=== PATIENT | male | born 1975 | race American Indian/Alaskan Native ===

== ENCOUNTER 2016-11-03 04:21 | Emergency (ER) | payer SELFPAY ==
[2016-11-03 04:37] VITALS: BP 126/77
[2016-11-03] MEDS ORDERED: HYDROGEN PEROXIDE TP ONE (05:10)
[2016-11-03] MEDS ORDERED: XYLOCAINE 1% MPF 5 mL INFILTRATI ONE (05:10)
[2016-11-03] MEDS ORDERED: HYDROGEN PEROXIDE ONE (05:13)
[2016-11-03] MEDS ORDERED: XYLOCAINE 1% MPF 5 mL ONE (05:15)
--- NOTE | 2016-11-03 05:57 | Emergency Department Report ---
ED ENT HPI - General Chief complaint: Earache Stated complaint: EAR PAIN Time Seen by Provider: 11/03/16 05:32 Source: patient Mode of arrival: Ambulatory Limitations: No Limitations - History of Present Illness Initial comments: 41-year-old male presents with complaint of foreign body sensation in the ear since yesterday. Patient complaining of sensation and left ear of pressure and possibly concerned of an insect in his ear. Patient denies any hearing loss no discharge from the ear. Eyes any fever or chills no headache no dental pain. MD complaint: ear pain Onset/Timin -: days(s) Location: L ear Severity: mild Severity scale (0 -10): 3 Quality: aching, dull Consistency: intermittent Improves with: none - Related Data Previous Rx's Medication Instructions Recorded Last Taken Type HYDROcodone/APAP 5-325 [[place] 1 each PO Q6HR PRN #12 tablet 08/09/15 Unknown Rx 5/325] Sulfamethoxazole/Trimethoprim 1 each PO BID #14 tablet 08/09/15 Unknown Rx [Bactrim DS TAB] Brompheniramine/Pseudoephed/Dm 10 ml PO Q4H PRN #120 syrup 10/12/15 Unknown Rx [Bromfed Dm Cough Syrup] Ondansetron [Zofran Odt] 4 mg PO Q8H PRN #10 tab.rapdis 10/12/15 Unknown Rx Amoxicillin [Trimox CAP] 500 mg PO Q8H #21 capsule 11/03/16 Unknown Rx Carbamide Peroxide 6.5% [Ear Wax 300 drops OT QDAY #1 bottle 11/03/16 Unknown Rx Drops] Ibuprofen [Motrin] 600 mg PO Q8H PRN #20 tablet 11/03/16 Unknown Rx Neomy/Polymyx B/Hc (Otic) Soln 4 drops OTIC TID #1 bottle 11/03/16 Unknown Rx [Cortisporin (Otic) Soln] Allergies Allergy/AdvReac Type Severity Reaction Status Date / Time No Known Allergies Allergy Unverified 08/11/14 14:23 ED Dental HPI - General Chief complaint: Earache Stated complaint: EAR PAIN Time Seen by Provider: 11/03/16 05:32 Source: patient Mode of arrival: Ambulatory Limitations: No Limitations - Related Data Previous Rx's Medication Instructions Recorded Last Taken Type HYDROcodone/APAP 5-325 [[place] 1 each PO Q6HR PRN #12 tablet 08/09/15 Unknown Rx 5/325] Sulfamethoxazole/Trimethoprim 1 each PO BID #14 tablet 08/09/15 Unknown Rx [Bactrim DS TAB] Brompheniramine/Pseudoephed/Dm 10 ml PO Q4H PRN #120 syrup 10/12/15 Unknown Rx [Bromfed Dm Cough Syrup] Ondansetron [Zofran Odt] 4 mg PO Q8H PRN #10 tab.rapdis 10/12/15 Unknown Rx Amoxicillin [Trimox CAP] 500 mg PO Q8H #21 capsule 11/03/16 Unknown Rx Carbamide Peroxide 6.5% [Ear Wax 300 drops OT QDAY #1 bottle 11/03/16 Unknown Rx Drops] Ibuprofen [Motrin] 600 mg PO Q8H PRN #20 tablet 11/03/16 Unknown Rx Neomy/Polymyx B/Hc (Otic) Soln 4 drops OTIC TID #1 bottle 11/03/16 Unknown Rx [Cortisporin (Otic) Soln] Allergies Allergy/AdvReac Type Severity Reaction Status Date / Time No Known Allergies Allergy Unverified 08/11/14 14:23 ED Review of Systems ROS: Stated complaint: EAR PAIN Other details as noted in HPI Constitutional: denies: chills, fever Eyes: denies: eye pain, eye discharge, vision change ENT: ear pain. denies: throat pain Respiratory: denies: cough, shortness of breath, wheezing Cardiovascular: denies: chest pain, palpitations Endocrine: no symptoms reported Gastrointestinal: denies: abdominal pain, nausea, diarrhea Genitourinary: denies: urgency, dysuria Musculoskeletal: denies: back pain, joint swelling, arthralgia Skin: denies: rash, lesions Neurological: denies: headache, weakness, paresthesias Psychiatric: denies: anxiety, depression Hematological/Lymphatic: denies: easy bleeding, easy bruising ED Past Medical Hx - Past Medical History Previous Medical History?: No - Surgical History Past Surgical History?: No - Social History Smoking Status: Never Smoker Substance Use Type: None - Medications Home Medications: Home Medications Medication Instructions Recorded Confirmed Last Taken Type HYDROcodone/APAP 5-325 [[place] 1 each PO Q6HR PRN #12 tablet 08/09/15 Unknown Rx 5/325] Sulfamethoxazole/Trimethoprim 1 each PO BID #14 tablet 08/09/15 Unknown Rx [Bactrim DS TAB] Brompheniramine/Pseudoephed/Dm 10 ml PO Q4H PRN #120 syrup 10/12/15 Unknown Rx [Bromfed Dm Cough Syrup] Ondansetron [Zofran Odt] 4 mg PO Q8H PRN #10 tab.rapdis 10/12/15 Unknown Rx Amoxicillin [Trimox CAP] 500 mg PO Q8H #21 capsule 11/03/16 Unknown Rx Carbamide Peroxide 6.5% [Ear Wax 300 drops OT QDAY #1 bottle 11/03/16 Unknown Rx Drops] Ibuprofen [Motrin] 600 mg PO Q8H PRN #20 tablet 11/03/16 Unknown Rx Neomy/Polymyx B/Hc (Otic) Soln 4 drops OTIC TID #1 bottle 11/03/16 Unknown Rx [Cortisporin (Otic) Soln] ED Physical Exam - General Limitations: No Limitations General appearance: alert, in no apparent distress - Head Head exam: Present: atraumatic, normocephalic - Eye Eye exam: Present: normal appearance, PERRL, EOMI - ENT ENT exam: Present: mucous membranes moist - Expanded ENT Exam Expanded TM/Canal exam: Cerumen Impaction: Left TM (cerumen impaction left ear, no foreign body no insect visualized) - Neck Neck exam: Present: normal inspection - Respiratory Respiratory exam: Present: normal lung sounds bilaterally. Absent: respiratory distress - Cardiovascular Cardiovascular Exam: Present: regular rate, normal rhythm. Absent: systolic murmur, diastolic murmur, rubs, gallop - GI/Abdominal GI/Abdominal exam: Present: soft, normal bowel sounds - Rectal Rectal exam: Present: deferred - Extremities Exam Extremities exam: Present: normal inspection - Back Exam Back exam: Present: normal inspection - Neurological Exam Neurological exam: Present: alert, oriented X3 - Psychiatric Psychiatric exam: Present: normal affect, normal mood - Skin Skin exam: Present: warm, dry, intact, normal color. Absent: rash ED Course Vital Signs 11/03/16 04:25 Temperature 98.2 F Pulse Rate 73 Blood Pressure 126/77 O2 Sat by Pulse 98 Oximetry ED Medical Decision Making - Medical Decision Making A/P: Left side cerumen impaction ear, otitis externa 1-I was able to flush patient's ear and removed cerumen, tympanic membrane visualized, slightly injected, mostly injected in external auditory canal. no mastoid tenderness or erythma on exam 2-Motrin when necessary for pain 3-Corticosporin drops, Debrox eardrops 4- follow-up with primary care doctor Critical care attestation.: If time is entered above; I have spent that time in minutes in the direct care of this critically ill patient, excluding procedure time. ED Disposition Clinical Impression: Impacted cerumen of left ear Disposition: DISCHARGED TO HOME OR SELFCARE Is pt being admited?: No Does the pt Need Aspirin: No Condition: Stable Instructions: Cerumen Impaction (ED), Otitis Externa (ED) Prescriptions: Amoxicillin [Trimox CAP] 500 mg PO Q8H #21 capsule Carbamide Peroxide 6.5% [Ear Wax Drops] 300 drops OT QDAY #1 bottle Ibuprofen [Motrin] 600 mg PO Q8H PRN #20 tablet PRN Reason: Pain Neomy/Polymyx B/Hc (Otic) Soln [Cortisporin (Otic) Soln] 4 drops OTIC TID #1 bottle Referrals: [facility] [Outside] - 3-5 Days Forms: Work/School Release Form(ED) Time of Disposition: 05:57
== END 2016-11-03 06:41 | disposition home or self-care (01) ==
LOC: ED 04:21
DX: H61.22 Impacted cerumen, left ear (principal); Y92.9 Unspecified place or not applicable
CPT/HCPCS: 99282

== ENCOUNTER 2016-12-17 04:22 | Emergency (ER) | payer SELFPAY ==
[2016-12-17] MEDS ORDERED: NORCO 5/325 ONE (04:25)
[2016-12-17] MEDS ORDERED: NORCO 5/325 PO ONE (04:32)
[2016-12-17 04:45] VITALS: BP 119/72
[2016-12-17 04:49] LABS: Basophils % (Auto) 0.8 % (0.0-1.8); Eosinophils % (Auto) 0.1 % (0.0-4.3); Hematocrit 45.1 % (35.5-45.6); Hemoglobin 15.3 gm/dl (11.8-15.2); Mean Corpuscular HGB Conc 34 % (32-34); Mean Corpuscular Hemoglobin 29 pg (28-32); Mean Corpuscular Volume 86 fl (84-94); Platelet Count 231 K/mm3 (140-440); Red Blood Count 5.22 M/mm3 (3.65-5.03); Red Cell Distribution Width 14.4 % (13.2-15.2); White Blood Count 8.6 K/mm3 (4.5-11.0)
[2016-12-17 05:11] LABS: Alanine Aminotransferase 11 units/L (7-56); Albumin 4.2 g/dL (3.9-5); Albumin/Globulin Ratio 1.4 %; Alkaline Phosphatase 89 units/L (35-129); Anion Gap 18 mmol/L; Bilirubin,Total 0.2 mg/dL (0.1-1.2); Blood Urea Nitrogen 12 mg/dL (9-20); Calcium 9.4 mg/dL (8.4-10.2); Carbon Dioxide 26 mmol/L (22-30); Chloride 97.5 mmol/L (98-107); Glucose 126 mg/dL (75-100); Lipase 17 units/L (13-60); Sodium 137 mmol/L (137-145); Total Protein 7.2 g/dL (6.3-8.2)
--- NOTE | 2016-12-17 05:18 | Cat Scan Report ---
FINAL REPORT EXAM: CT ABDOMEN PELVIS WO CON HISTORY: RT Flank Pn, Blood in urine TECHNIQUE: Unenhanced stone protocol CT of the abdomen and pelvis at 2.5 millimeter axial increments. Coronal and sagittal reconstruction was also performed. PRIORS: None. FINDINGS: There is 4.3 mm obstructing calculus in the proximal right ureter, just beyond the ureteropelvic junction. This is located at approximately L3 vertebral level. This is associated with mild right hydronephrosis. There are other 4-5 mm nonobstructing calculi present bilaterally in the lower poles. No evidence for bladder mass is seen. Otherwise, within the limits of a noncontrast exam, the liver, spleen, pancreas, gallbladder, and adrenal glands are unremarkable. No evidence for retroperitoneal or pelvic lymphadenopathy is seen. The bowel loops have normal caliber. No fluid collection, inflammatory change, or free air is seen within the abdomen or pelvis. The cecum dips deep into the right pelvis. The appendix is normal located along the right pelvic sidewall. Within the pelvis, the prostate is normal. Images through the upper abdomen include the lung bases which are expanded and clear. Bony structures show no focal abnormalities. IMPRESSION: 1. Obstructing calculus in the proximal right ureter causing mild hydronephrosis 2. Multiple bilateral nonobstructing renal calculi in the lower poles
[2016-12-17 07:09] LABS: Bacteria,Urine 2+ /HPF (Negative); Bilirubin,Urine NEG (Negative); Blood,Urine LG (Negative); Ketones,Urine TR mg/dL (Negative); Leukocyte Esterase,Urine NEG (Negative); Mucus,Urine 3+ /HPF; Nitrite,Urine NEG (Negative)
[2016-12-17 07:10] LABS: RBC,Urine > 182.0 /HPF (0.0-6.0)
== END 2016-12-17 04:45 | disposition left against medical advice (07) ==
LOC: ED 04:22
DX: R31.9 Hematuria, unspecified (principal); R10.9 Unspecified abdominal pain; Z53.21 Procedure and treatment not carried out due to patient leaving prior to being seen by health care provider
CPT/HCPCS: 36415; 74176; 80053; 81001; 83690; 85025

== ENCOUNTER 2016-12-19 01:30 | Emergency (ER) | payer SELFPAY ==
[2016-12-19] MEDS ORDERED: TYLENOL ONE (01:50)
[2016-12-19] MEDS ORDERED: TYLENOL PO ONE (01:51)
[2016-12-19 02:41] LABS: Bilirubin,Urine NEG (Negative); Blood,Urine LG (Negative); Ketones,Urine NEG (Negative); Leukocyte Esterase,Urine TR (Negative); Mucus,Urine 3+ /HPF; Nitrite,Urine NEG (Negative); Urobilinogen,Urine < 2.0 mg/dL (<2.0)
[2016-12-19 02:45] LABS: RBC,Urine > 182.0 /HPF (0.0-6.0)
[2016-12-19] MEDS ORDERED: TORADOL IM ONE (06:48)
--- NOTE | 2016-12-19 06:49 | Emergency Department Report ---
ED Abdominal Pain HPI - General Chief Complaint: Urogenital-Male Stated Complaint: BACK PAIN,BLOOD IN URINE Time Seen by Provider: 12/19/16 06:39 Source: patient Mode of arrival: Ambulatory Limitations: No Limitations - History of Present Illness Initial Comments: This is a 41-year-old male. He is previously unknown to me. He does not have a primary care doctor. He has a past medical history of kidney stones. He reports having required lithotripsy in the past. Patient recently presented for flank pain and hematuria. He had a noncontrast CT scan of the abdomen and pelvis demonstrated obstructing calculus in the right proximal ureter causing mild hydronephrosis. His laboratory studies were unremarkable with the exception of hematuria. At the present moment, the patient has no chest pain, abdominal pain, shortness of breath, irritative or obstructive urinary symptoms or testicular pain. He has no complaints at this time. The patient was instructed that he has an obstructing kidney stone and that his laboratory studies were unremarkable. He will be discharged with pain medication, nausea medication, tamsulosin. The case was discussed with urology on-call, Dr. Whitlock, who agreed with this plan of care, and indicated the patient can follow-up with him later on today, at 8:15 in the morning. The patient was informed of these findings and the plan of care. He verbalizes understanding. MD Complaint: abdominal pain, flank pain Severity scale (0 -10): 10 Consistency: now resolved Improves With: nothing Worsens With: nothing Associated Symptoms: denies other symptoms - Related Data Previous Rx's Medication Instructions Recorded Last Taken Type HYDROcodone/APAP 5-325 [[place] 1 each PO Q6HR PRN #12 tablet 08/09/15 Unknown Rx 5/325] Sulfamethoxazole/Trimethoprim 1 each PO BID #14 tablet 08/09/15 Unknown Rx [Bactrim DS TAB] Brompheniramine/Pseudoephed/Dm 10 ml PO Q4H PRN #120 syrup 10/12/15 Unknown Rx [Bromfed Dm Cough Syrup] Ondansetron [Zofran Odt] 4 mg PO Q8H PRN #10 tab.rapdis 10/12/15 Unknown Rx Amoxicillin [Trimox CAP] 500 mg PO Q8H #21 capsule 11/03/16 Unknown Rx Carbamide Peroxide 6.5% [Ear Wax 300 drops OT QDAY #1 bottle 11/03/16 Unknown Rx Drops] Ibuprofen [Motrin] 600 mg PO Q8H PRN #20 tablet 11/03/16 Unknown Rx Neomy/Polymyx B/Hc (Otic) Soln 4 drops OTIC TID #1 bottle 11/03/16 Unknown Rx [Cortisporin (Otic) Soln] Ketorolac [Toradol] 10 mg PO Q6H PRN #20 tablet 12/19/16 Unknown Rx Ondansetron [Zofran Odt] 4 mg PO QID PRN #20 tab.rapdis 12/19/16 Unknown Rx Tamsulosin [Flomax] 0.4 mg PO QDAY #30 cap 12/19/16 Unknown Rx oxyCODONE [Roxicodone] 5 mg PO Q6HR PRN #15 tablet 12/19/16 Unknown Rx Allergies Allergy/AdvReac Type Severity Reaction Status Date / Time No Known Allergies Allergy Unverified 08/11/14 14:23 ED Review of Systems ROS: Stated complaint: BACK PAIN,BLOOD IN URINE Other details as noted in HPI ED Past Medical Hx - Past Medical History Previous Medical History?: Yes Additional medical history: Kidney Stone - Surgical History Past Surgical History?: Yes Additional Surgical History: Kidney Stone - Social History Smoking Status: Current Every Day Smoker Substance Use Type: Marijuana - Medications Home Medications: Home Medications Medication Instructions Recorded Confirmed Last Taken Type HYDROcodone/APAP 5-325 [[place] 1 each PO Q6HR PRN #12 tablet 08/09/15 Unknown Rx 5/325] Sulfamethoxazole/Trimethoprim 1 each PO BID #14 tablet 08/09/15 Unknown Rx [Bactrim DS TAB] Brompheniramine/Pseudoephed/Dm 10 ml PO Q4H PRN #120 syrup 10/12/15 Unknown Rx [Bromfed Dm Cough Syrup] Ondansetron [Zofran Odt] 4 mg PO Q8H PRN #10 tab.rapdis 10/12/15 Unknown Rx Amoxicillin [Trimox CAP] 500 mg PO Q8H #21 capsule 11/03/16 Unknown Rx Carbamide Peroxide 6.5% [Ear Wax 300 drops OT QDAY #1 bottle 11/03/16 Unknown Rx Drops] Ibuprofen [Motrin] 600 mg PO Q8H PRN #20 tablet 11/03/16 Unknown Rx Neomy/Polymyx B/Hc (Otic) Soln 4 drops OTIC TID #1 bottle 11/03/16 Unknown Rx [Cortisporin (Otic) Soln] Ketorolac [Toradol] 10 mg PO Q6H PRN #20 tablet 12/19/16 Unknown Rx Ondansetron [Zofran Odt] 4 mg PO QID PRN #20 tab.rapdis 12/19/16 Unknown Rx Tamsulosin [Flomax] 0.4 mg PO QDAY #30 cap 12/19/16 Unknown Rx oxyCODONE [Roxicodone] 5 mg PO Q6HR PRN #15 tablet 12/19/16 Unknown Rx ED Physical Exam - General Limitations: No Limitations General appearance: alert, in no apparent distress - Head Head exam: Present: atraumatic, normocephalic - Eye Eye exam: Present: normal appearance, EOMI. Absent: nystagmus - ENT ENT exam: Present: normal exam, normal orophraynx, mucous membranes moist, normal external ear exam - Neck Neck exam: Present: normal inspection, full ROM. Absent: tenderness, meningismus - Respiratory Respiratory exam: Present: normal lung sounds bilaterally. Absent: respiratory distress, wheezes, rales, rhonchi, stridor, chest wall tenderness, accessory muscle use, decreased breath sounds, prolonged expiratory - Cardiovascular Cardiovascular Exam: Present: regular rate, normal rhythm, normal heart sounds. Absent: bradycardia, tachycardia, irregular rhythm, systolic murmur, diastolic murmur, rubs, gallop - GI/Abdominal GI/Abdominal exam: Present: soft, normal bowel sounds. Absent: distended, tenderness, guarding, rebound, rigid, pulsatile mass - Rectal Rectal exam: Present: deferred - Extremities Exam Extremities exam: Present: normal inspection, full ROM, normal capillary refill. Absent: tenderness, pedal edema, joint swelling, calf tenderness - Back Exam Back exam: Present: normal inspection, full ROM. Absent: tenderness, CVA tenderness (R), CVA tenderness (L), muscle spasm, paraspinal tenderness, vertebral tenderness - Neurological Exam Neurological exam: Present: alert, oriented X3, normal gait, other (Extraocular movements intact. Tongue midline. No facial droop. Facial sensation intact to light touch in the V1, V2, V3 distribution bilaterally. 5 and 5 strength in 4 extremities.. Sensation is intact to light touch in 4 extremities.). Absent : motor sensory deficit - Psychiatric Psychiatric exam: Present: normal affect, normal mood - Skin Skin exam: Present: warm, dry, intact, normal color. Absent: rash ED Course Vital Signs 12/19/16 12/19/16 01:44 06:00 Temperature 97.7 F 97.8 F Pulse Rate 70 18 L Respiratory 18 16 Rate Blood Pressure 134/94 Blood Pressure 135/69 [Left] O2 Sat by Pulse 99 100 Oximetry ED Medical Decision Making - Lab Data Vital Signs 12/19/16 12/19/16 01:44 06:00 Temperature 97.7 F 97.8 F Pulse Rate 70 18 L Respiratory 18 16 Rate Blood Pressure 134/94 Blood Pressure 135/69 [Left] O2 Sat by Pulse 99 100 Oximetry Labs 12/19/16 01:30 Urine Color Red Urine Turbidity Slightly-cloudy Urine pH 6.0 Ur Specific [place] 1.014 Urine Protein 100 mg/dl Urine Glucose (UA) Neg Urine Ketones Neg Urine Blood Lg Urine Nitrite Neg Urine Bilirubin Neg Urine Urobilinogen < 2.0 Ur Leukocyte Esterase Tr Urine WBC (Auto) 0.0 Urine RBC (Auto) > 182.0 U Epithel Cells (Auto) 1.0 Urine Mucus 3+ - Radiology Data Radiology results: report reviewed, image reviewed CT scan of the abdomen and pelvis demonstrated obstructing calculus in the right ureter causing mild hydronephrosis - Differential Diagnosis known renal colic Critical care attestation.: If time is entered above; I have spent that time in minutes in the direct care of this critically ill patient, excluding procedure time. ED Disposition Clinical Impression: Renal colic on right side Disposition: DISCHARGED TO HOME OR SELFCARE Is pt being admited?: No Does the pt Need Aspirin: No Condition: Stable Instructions: Renal Colic (ED) Additional Instructions: Laboratory studies, CT scan consistent with kidney stone on the right-hand side. The kidney stone is blocking the tube that connects the kidney to the bladder. Take the pain medication, nausea medication as needed and directed. Use caution when taking the oxycodone as this medication is sedating. If taking the oxycodone, not drive, consume alcohol, care for children, or make important decisions. I recommend that you follow-up with Dr. Whitlock for any local urology specialist within the next 7-10 days. Not following up in a timely fashion may result in impairment of kidney function, loss of kidney function, ultimately which may require dialysis. Return to the ER right away with new pain, worsened pain, migration of pain, fevers or chills, intractable nausea or vomiting, inability to tolerate liquid feeds. Prescriptions: Ketorolac [Toradol] 10 mg PO Q6H PRN #20 tablet PRN Reason: Pain Ondansetron [Zofran Odt] 4 mg PO QID PRN #20 tab.rapdis PRN Reason: Nausea oxyCODONE [Roxicodone] 5 mg PO Q6HR PRN #15 tablet PRN Reason: Pain Tamsulosin [Flomax] 0.4 mg PO QDAY #30 cap Referrals: PRIMARY CARE, [Primary Care Provider] - 3-5 Days FAB WHITLOCK MD [Staff Physician] - 3-5 Days NIDIA GREENWOOD MD [Staff Physician] - 3-5 Days Forms: Work/School Release Form(ED)
[2016-12-19 06:57] VITALS: BP 135/69
== END 2016-12-19 07:02 | disposition home or self-care (01) ==
LOC: ED 01:30
DX: N23 Unspecified renal colic (principal); F17.200 Nicotine dependence, unspecified, uncomplicated; F12.90 Cannabis use, unspecified, uncomplicated
CPT/HCPCS: 81001; 99283

== ENCOUNTER 2017-08-12 07:33 | Emergency (ER) | payer OTHER ==
[2017-08-12 09:38] LABS: Bilirubin,Urine NEG (Negative); Blood,Urine LG (Negative); Ketones,Urine NEG (Negative); Leukocyte Esterase,Urine NEG (Negative); Mucus,Urine FEW /HPF; Nitrite,Urine NEG (Negative); Protein,Urine <15 mg/dL mg/dL (Negative); Urobilinogen,Urine < 2.0 mg/dL (<2.0)
[2017-08-12 09:47] LABS: RBC,Urine > 182.0 /HPF (0.0-6.0)
[2017-08-12] MEDS ORDERED: TORADOL IV ONE (12:24)
--- NOTE | 2017-08-12 13:29 | Cat Scan Report ---
CT ABDOMEN PELVIS WITHOUT CONTRAST: HISTORY: Right flank pain. COMPARISON: 12/17/16. TECHNIQUE: Helical CT in 1.25mm intervals without IV contrast. Sagittal and coronal reconstructions. FINDINGS: Lung bases: Normal. Liver: Normal. Biliary system: Normal. Pancreas: Normal. Spleen: Normal. Kidneys/ureters/bladder: Bilateral nephrolithiasis is identified. There are 2 stones at the inferior pole of the right kidney measuring 1 mm and 7 mm. There are 2 stones at the inferior pole of the left kidney measuring 3 mm and 7 mm. A 1 mm calyceal stone is also identified in the midpole of the left kidney. The ureters are normal course and caliber. No ureteral or bladder stones are identified. Adrenal glands: Normal. Aorta: Normal. Intestines: Normal. Appendix: Normal. Ascites: None. Adenopathy: None. Musculoskeletal: Normal. IMPRESSION: Bilateral nephrolithiasis. No evidence for ureteral stones or hydronephrosis.
[2017-08-12 14:47] VITALS: BP 129/88
--- NOTE | 2017-08-12 14:57 | Emergency Department Report ---
ED General Adult HPI - General Chief complaint: Abdominal Pain Stated complaint: URINATING BLOOD Time Seen by Provider: 08/12/17 13:24 Source: patient Mode of arrival: Ambulatory Limitations: No Limitations - History of Present Illness Initial comments: Patient complained of right flank pain associated with blood in his urine. He has a history of kidney stones. On my encounter he was sleeping on a gurney with his significant other. He had to be awoken by the nurse. He did not complain of any pain. He had already had CT evaluation. Patient has been here before and didn't have ureterolithiasis associated with mild hydronephrosis this year. He does not follow up with a urologist. -: Gradual, hour(s) Severity scale (0 -10): 0 Quality: dull Consistency: now resolved Improves with: none Worsens with: none Associated Symptoms: denies other symptoms Treatments Prior to Arrival: none - Related Data Previous Rx's Medication Instructions Recorded Last Taken Type HYDROcodone/APAP 5-325 [[place] 1 each PO Q6HR PRN #12 tablet 08/09/15 Unknown Rx 5/325] Sulfamethoxazole/Trimethoprim 1 each PO BID #14 tablet 08/09/15 Unknown Rx [Bactrim DS TAB] Brompheniramine/Pseudoephed/Dm 10 ml PO Q4H PRN #120 syrup 10/12/15 Unknown Rx [Bromfed Dm Cough Syrup] Ondansetron [Zofran Odt] 4 mg PO Q8H PRN #10 tab.rapdis 10/12/15 Unknown Rx Amoxicillin [Trimox CAP] 500 mg PO Q8H #21 capsule 11/03/16 Unknown Rx Carbamide Peroxide 6.5% [Ear Wax 300 drops OT QDAY #1 bottle 11/03/16 Unknown Rx Drops] Ibuprofen [Motrin] 600 mg PO Q8H PRN #20 tablet 11/03/16 Unknown Rx Neomy/Polymyx B/Hc (Otic) Soln 4 drops OTIC TID #1 bottle 11/03/16 Unknown Rx [Cortisporin (Otic) Soln] Ketorolac [Toradol] 10 mg PO Q6H PRN #20 tablet 12/19/16 Unknown Rx Ondansetron [Zofran Odt] 4 mg PO QID PRN #20 tab.rapdis 04/28/17 Unknown Rx Tamsulosin [Flomax] 0.4 mg PO QDAY #30 cap 12/19/16 Unknown Rx oxyCODONE [Roxicodone] 5 mg PO Q6HR PRN #15 tablet 12/19/16 Unknown Rx HYDROcodone/APAP 5-325 [[place] 1 each PO Q6HR PRN #7 tablet 08/12/17 Unknown Rx 5/325] Allergies Allergy/AdvReac Type Severity Reaction Status Date / Time No Known Allergies Allergy Unverified 08/11/14 14:23 ED Review of Systems ROS: Stated complaint: URINATING BLOOD Other details as noted in HPI Constitutional: denies: chills, fever Eyes: denies: eye pain, eye discharge, vision change ENT: denies: ear pain, throat pain Respiratory: denies: cough, shortness of breath, wheezing Cardiovascular: denies: chest pain, palpitations Endocrine: no symptoms reported Gastrointestinal: denies: abdominal pain, nausea, diarrhea Genitourinary: hematuria. denies: urgency, dysuria Musculoskeletal: back pain. denies: joint swelling, arthralgia Skin: denies: rash, lesions Neurological: denies: headache, weakness, paresthesias Psychiatric: denies: anxiety, depression Hematological/Lymphatic: denies: easy bleeding, easy bruising ED Past Medical Hx - Past Medical History Previous Medical History?: Yes Additional medical history: Kidney Stone - Surgical History Past Surgical History?: Yes Additional Surgical History: Kidney Stone - Social History Smoking Status: Current Every Day Smoker Substance Use Type: Alcohol, Marijuana - Medications Home Medications: Home Medications Medication Instructions Recorded Confirmed Last Taken Type HYDROcodone/APAP 5-325 [[place] 1 each PO Q6HR PRN #12 tablet 08/09/15 Unknown Rx 5/325] Sulfamethoxazole/Trimethoprim 1 each PO BID #14 tablet 08/09/15 Unknown Rx [Bactrim DS TAB] Brompheniramine/Pseudoephed/Dm 10 ml PO Q4H PRN #120 syrup 10/12/15 Unknown Rx [Bromfed Dm Cough Syrup] Ondansetron [Zofran Odt] 4 mg PO Q8H PRN #10 tab.rapdis 10/12/15 Unknown Rx Amoxicillin [Trimox CAP] 500 mg PO Q8H #21 capsule 11/03/16 Unknown Rx Carbamide Peroxide 6.5% [Ear Wax 300 drops OT QDAY #1 bottle 11/03/16 Unknown Rx Drops] Ibuprofen [Motrin] 600 mg PO Q8H PRN #20 tablet 11/03/16 Unknown Rx Neomy/Polymyx B/Hc (Otic) Soln 4 drops OTIC TID #1 bottle 11/03/16 Unknown Rx [Cortisporin (Otic) Soln] Ketorolac [Toradol] 10 mg PO Q6H PRN #20 tablet 12/19/16 Unknown Rx Ondansetron [Zofran Odt] 4 mg PO QID PRN #20 tab.rapdis 12/19/16 Unknown Rx Tamsulosin [Flomax] 0.4 mg PO QDAY #30 cap 12/19/16 Unknown Rx oxyCODONE [Roxicodone] 5 mg PO Q6HR PRN #15 tablet 12/19/16 Unknown Rx HYDROcodone/APAP 5-325 [[place] 1 each PO Q6HR PRN #7 tablet 08/12/17 Unknown Rx 5/325] ED Physical Exam - General Limitations: No Limitations General appearance: alert, in no apparent distress - Head Head exam: Present: atraumatic, normocephalic - Eye Eye exam: Present: normal appearance - ENT ENT exam: Present: mucous membranes moist - Neck Neck exam: Present: normal inspection - Respiratory Respiratory exam: Present: normal lung sounds bilaterally. Absent: respiratory distress - Cardiovascular Cardiovascular Exam: Present: regular rate, normal rhythm. Absent: systolic murmur, diastolic murmur, rubs, gallop - GI/Abdominal GI/Abdominal exam: Present: soft, normal bowel sounds. Absent: distended, tenderness, guarding, rebound - Rectal Rectal exam: Present: deferred - Extremities Exam Extremities exam: Present: normal inspection - Back Exam Back exam: Present: normal inspection - Neurological Exam Neurological exam: Present: alert, oriented X3, CN II-XII intact. Absent: motor sensory deficit - Psychiatric Psychiatric exam: Present: normal affect, normal mood - Skin Skin exam: Present: warm, dry, intact, normal color. Absent: rash ED Course Vital Signs 08/12/17 08/12/17 07:37 14:47 Temperature 98.1 F 98.7 F Pulse Rate 64 59 L Respiratory 22 14 Rate Blood Pressure 119/76 Blood Pressure 129/88 [Right] O2 Sat by Pulse 99 100 Oximetry - Reevaluation(s) Reevaluation #1: Patient appropriate for outpatient disposition. 08/12/17 14:55 ED Medical Decision Making - Radiology Data Radiology results: report reviewed interpreted by me: Small nephrolithiasis with no evidence of hydronephrosis or ureterolithiasis. Critical care attestation.: If time is entered above; I have spent that time in minutes in the direct care of this critically ill patient, excluding procedure time. ED Disposition Clinical Impression: Right flank pain, Nephrolithiasis Disposition: TO HOME OR SELFCARE Is pt being admited?: No Does the pt Need Aspirin: No Condition: Stable Instructions: Kidney Stones (ED) Additional Instructions: I have prescribed something for pain and should you have recurrent pain. However at this time there is no signs of blockage. He should follow-up with a urologist and stay well hydrated. Prescriptions: HYDROcodone/APAP 5-325 [[place] 5/325] 1 each PO Q6HR PRN #7 tablet PRN Reason: Pain Referrals: PRIMARY CARE, [Primary Care Provider] - 3-5 Days Time of Disposition: 14:57
== END 2017-08-12 15:06 | disposition home or self-care (01) ==
LOC: ED 07:33
DX: N20.0 Calculus of kidney (principal); F17.200 Nicotine dependence, unspecified, uncomplicated; F12.10 Cannabis abuse, uncomplicated
CPT/HCPCS: 74176; 81001; 96374; 99284; J1885

== ENCOUNTER 2017-09-22 15:51 | Emergency (ER) | payer SELFPAY ==
[2017-09-22 16:09] VITALS: BP 138/71
[2017-09-22 17:06] LABS: Bacteria,Urine 1+ /HPF (Negative); Bilirubin,Urine NEG (Negative); Blood,Urine LG (Negative); Color,Urine Yellow (Yellow); Mucus,Urine 3+ /HPF; Nitrite,Urine NEG (Negative); RBC,Urine > 182.0 /HPF (0.0-6.0)
[2017-09-22 17:16] LABS: Basophils # (Auto) 0.1 K/mm3 (0.0-0.1); Basophils % (Auto) 0.8 % (0.0-1.8); Eosinophils % (Auto) 0.2 % (0.0-4.3); Hematocrit 48.4 % (35.5-45.6); Hemoglobin 16.3 gm/dl (11.8-15.2); Lymphocytes # (Auto) 1.9 K/mm3 (1.2-5.4); Lymphocytes % (Auto) 26.7 % (13.4-35.0); Mean Corpuscular HGB Conc 34 % (32-34); Mean Corpuscular Hemoglobin 30 pg (28-32); Mean Corpuscular Volume 89 fl (84-94); Monocytes # (Auto) 0.5 K/mm3 (0.0-0.8); Monocytes % (Auto) 6.8 % (0.0-7.3); Platelet Count 279 K/mm3 (140-440); Red Blood Count 5.45 M/mm3 (3.65-5.03); Red Cell Distribution Width 14.3 % (13.2-15.2)
[2017-09-22 17:32] LABS: Alanine Aminotransferase 17 units/L (7-56); Albumin 4.2 g/dL (3.9-5); BUN/Creatinine Ratio 13; Blood Urea Nitrogen 12 mg/dL (9-20); Calcium 9.7 mg/dL (8.4-10.2); Hemolysis Index 6
[2017-09-22] MEDS ORDERED: ZOFRAN ODT PO ONE (19:59)
[2017-09-22] MEDS ORDERED: PERCOCET 5/325 PO ONE (19:59)
--- NOTE | 2017-09-22 19:59 | Emergency Department Report ---
HPI - General Chief Complaint: Back Pain/Injury Time Seen by Provider: 09/22/17 19:24 - HPI HPI: Patient reports that he has new onset right flank pain with headache and bodyache. Patient says he has a history of kidney stone and reports some blood in his urine. Denies any urinary burning frequency urgency. Pain to right flank is tender to 10 and throbbing. No radiation of pain. Denies any fever or chills. [id number] pain medication did not help. No nausea or vomiting ED Past Medical Hx - Past Medical History Previous Medical History?: Yes Hx Kidney Stones: Yes Additional medical history: Kidney Stone - Surgical History Past Surgical History?: Yes Additional Surgical History: Kidney Stone, Laser surgery for kidney stones - Family History Family history: no significant - Social History Smoking Status: Current Every Day Smoker Substance Use Type: Alcohol, Cocaine, Marijuana - Medications Home Medications: Home Medications Medication Instructions Recorded Confirmed Last Taken Type Sulfamethoxazole/Trimethoprim 1 each PO BID #14 tablet 08/09/15 Unknown Rx [Bactrim DS TAB] Brompheniramine/Pseudoephed/Dm 10 ml PO Q4H PRN #120 syrup 10/12/15 Unknown Rx [Bromfed Dm Cough Syrup] Ondansetron [Zofran Odt] 4 mg PO Q8H PRN #10 tab.rapdis 10/12/15 Unknown Rx Amoxicillin [Trimox CAP] 500 mg PO Q8H #21 capsule 11/03/16 Unknown Rx Carbamide Peroxide 6.5% [Ear Wax 300 drops OT QDAY #1 bottle 11/03/16 Unknown Rx Drops] Neomy/Polymyx B/Hc (Otic) Soln 4 drops OTIC TID #1 bottle 11/03/16 Unknown Rx [Cortisporin (Otic) Soln] Ketorolac [Toradol] 10 mg PO Q6H PRN #20 tablet 12/19/16 Unknown Rx Ondansetron [Zofran Odt] 4 mg PO QID PRN #20 tab.rapdis 12/19/16 Unknown Rx Tamsulosin [Flomax] 0.4 mg PO QDAY #30 cap 12/19/16 Unknown Rx oxyCODONE [Roxicodone] 5 mg PO Q6HR PRN #15 tablet 12/19/16 Unknown Rx HYDROcodone/APAP 5-325 [[place] 1 each PO Q6HR PRN #7 tablet 08/12/17 Unknown Rx 5/325] HYDROcodone/APAP 5-325 [[place] 1 each PO Q6HR PRN #12 tablet 09/22/17 Unknown Rx 5-325 mg TAB] Ibuprofen [Motrin 600 MG tab] 600 mg PO Q8H PRN #15 tablet 09/22/17 Unknown Rx Promethazine [Phenergan TAB] 25 mg PO Q8HR PRN #15 tab 09/22/17 Unknown Rx Tamsulosin [Flomax] 0.4 mg PO QDAY 4 Days #4 cap 09/22/17 Unknown Rx ED Review of Systems ROS: Stated complaint: BODY PAIN, HEADACHES Other details as noted in HPI Comment: All other systems reviewed and negative Constitutional: no symptoms reported Respiratory: no symptoms reported Cardiovascular: denies: chest pain, palpitations, dyspnea on exertion, edema, syncope, paroxysmal nocturnal dyspnea Gastrointestinal: denies: abdominal pain, nausea, vomiting, diarrhea, constipation, hematemesis, melena, hematochezia Genitourinary: hematuria. denies: urgency, dysuria, frequency, discharge, testicular pain, testicular mass Musculoskeletal: back pain. denies: joint swelling, arthralgia, myalgia Skin: denies: rash Neurological: denies: headache, weakness, numbness, paresthesias, confusion, abnormal gait, vertigo Physical Exam - Physical Exam Vital Signs: Vital Signs 09/22/17 16:05 Temperature 97.1 F L Pulse Rate 71 Respiratory 16 Rate Blood Pressure 138/71 O2 Sat by Pulse 100 Oximetry General: This is a 41-year-old male well-nourished well-developed in no acute distress appears to be in pain. Physical Exam: Head: Normocephalic, atraumatic, no abrasion, no bruising and no contusion. Eyes: Biateral pupils equal and reactive to light, bilateral EOM intact.. Bilateral conjunctival and sclera without injection, normal accommodation. No nystagmus Neck: Supple, No Cervical adenopathy, full range of motion and no C-spine tenderness. No swelling or tracheal deviation normal reflexes Cardiovascular: S1, S2. Regular rate and rhythm. No murmur. Capillary refill is less then 3 seconds. Lungs: Clear to auscultate bilaterally. No rhonchi, wheezes or rales. No chest wall tenderness. No chest contusion. No bruising to chest. MSK: Strength 5/5 in all extremities. No joint deformity or crepitus. Normal inspection. Full range of motion to all extremities. No laceration, abrasion or ecchymotic area noted. Patient able to fully flex and extend bilateral knees without any difficulties. Bilateral knees nontender to palpate. Abdomen: Non-tender to palpate in all quadrants, no guarding or rebound tenderness, positive bowel sounds in all quadrants. Right CVA tenderness. No hernia, bruit or mass. No rigidity or distention. Extremities: No clubbing, cyanosis or edema. +2 pulses. No neurovascular compromise Skin: Clean, dry and intact. No rash or lesions. Neurological: GCS at 15, Pt is alert and oriented 3 speech is clear period. Bilateral hand family medicine physician assistant strong and equal. Normal gait. Negative Romberg and no pronator drift. Normal Reflexes. No motor or sensory deficit Back: No vertebral tenderness, no paraspinal tenderness. Ambulates without any difficulties. Psych: Normal mood and behavior ED Course Vital Signs 09/22/17 16:05 Temperature 97.1 F L Pulse Rate 71 Respiratory 16 Rate Blood Pressure 138/71 O2 Sat by Pulse 100 Oximetry - Reevaluation(s) Reevaluation #1: 09/22/17 22:20 Patient given Percocet 5/325 2 tablets, Zofran 8 mg ODT in the emergency room for pain patient voiced relief of his pain and is able to tolerate oral liquids in the emergency room. ED Medical Decision Making - Lab Data Result diagrams: 09/22/17 16:51 09/22/17 16:51 Lab Results 09/22/17 09/22/17 09/22/17 Range/Units 16:31 16:51 16:51 WBC 7.0 (4.5-11.0) K/mm3 RBC 5.45 H (3.65-5.03) M/mm3 Hgb 16.3 H (11.8-15.2) gm/dl Hct 48.4 H (35.5-45.6) % MCV 89 (84-94) fl MCH 30 (28-32) pg MCHC 34 (32-34) % RDW 14.3 (13.2-15.2) % Plt Count 279 (140-440) K/mm3 Lymph % (Auto) 26.7 (13.4-35.0) % [place] % (Auto) 6.8 (0.0-7.3) % Eos % (Auto) 0.2 (0.0-4.3) % Baso % (Auto) 0.8 (0.0-1.8) % Lymph # 1.9 (1.2-5.4) K/mm3 [place] # 0.5 (0.0-0.8) K/mm3 Eos # 0.0 (0.0-0.4) K/mm3 Baso # 0.1 (0.0-0.1) K/mm3 Seg Neutrophils % 65.5 (40.0-70.0) % Seg Neutrophils # 4.6 (1.8-7.7) K/mm3 Sodium 139 (137-145) mmol/L Potassium 4.5 (3.6-5.0) mmol/L Chloride 99.8 (98-107) mmol/L Carbon Dioxide 30 (22-30) mmol/L Anion Gap 14 mmol/L BUN 12 (9-20) mg/dL Creatinine 0.9 (0.8-1.5) mg/dL Estimated GFR > 60 ml/min BUN/Creatinine Ratio 13 % Glucose 96 (75-100) mg/dL Calcium 9.7 (8.4-10.2) mg/dL Total Bilirubin 0.40 (0.1-1.2) mg/dL AST 18 (5-40) units/L ALT 17 (7-56) units/L Alkaline Phosphatase 86 (35-129) units/L Total Protein 7.7 (6.3-8.2) g/dL Albumin 4.2 (3.9-5) g/dL Albumin/Globulin Ratio 1.2 % Urine Color Yellow (Yellow) Urine Turbidity Clear (Clear) Urine pH 7.0 (5.0-7.0) Ur Specific [place] 1.020 (1.003-1.030) Urine Protein 30 mg/dl (Negative) mg/dL Urine Glucose (UA) Neg (Negative) mg/dL Urine Ketones Neg (Negative) mg/dL Urine Blood Lg (Negative) Urine Nitrite Neg (Negative) Urine Bilirubin Neg (Negative) Urine Urobilinogen 2.0 (<2.0) mg/dL Ur Leukocyte Esterase Neg (Negative) Urine WBC (Auto) 4.0 (0.0-6.0) /HPF Urine RBC (Auto) > 182.0 (0.0-6.0) /HPF U Epithel Cells (Auto) < 1.0 (0-13.0) /HPF Urine Bacteria (Auto) 1+ (Negative) /HPF Urine Mucus 3+ /HPF Urine culture pending - Radiology Data Radiology results: report reviewed CT scan of the abdomen and pelvis without contrast shows a 5 mm calculus in the mid right ureter, with mild right hydroureteronephrosis. There is a punctuate nonobstructive 1 mm calculus in the right kidney midpole. Nonobstructive left renal calculi are seen. The appendix is visualized and does not appear inflamed and there are no bowel obstructions or acute inflammation seen - Medical Decision Making ED course: Significant pain and right flank pain with some blood in urine. Patient has a history of kidney stones and CT scan of the abdomen and pelvis without contrast revealed patient with 5 mm calculus in the ureter with mild hydronephrosis and also nonobstructive kidney stone in left kidney. And kidney stone and right kidney at midpole. Urinalysis with 1+ bacteria and large amount of blood but no leukocyte esterase, white blood cell or nitrites seen. This was discussed patient and I told him that he is a 89 follow up with urologist and also to increase his fluid intake to at least 2-3 L of water per day. Patient given Percocet 5/325 2 tablets and Zofran 8 mg ODT and emergency room which relieved this pain. He is able to tolerate oral liquids without any vomiting. He voiced relief of his pain. Patient voiced that he does not have an access to primary care physician and I discussed with him that I'll refer him to [place] [facility] and also to [facility] that he should call tomorrow to schedule an appointment. Discharged home in stable condition with prescription for [place], Motrin , flomax and Zofran. Critical care attestation.: If time is entered above; I have spent that time in minutes in the direct care of this critically ill patient, excluding procedure time. ED Disposition Clinical Impression: Acute right flank pain, Bilateral kidney stones, Right ureteral calculus, Hydroureteronephrosis Disposition: TO HOME OR SELFCARE Is pt being admited?: No Does the pt Need Aspirin: No Condition: Stable Instructions: Kidney Stones (ED), Renal Colic (ED), How to Strain Your Urine ( ED), Flank Pain (ED), Hydronephrosis (ED) Additional Instructions: Please increase E fluid intake to 2-3 L of water and/or cranberry juice daily Take Flomax as prescribed to help with passage of kidney stone Avoid drinking and dark sodas or any carbonated beverage Take Motrin for mild pain and [place] for moderate to severe pain Follow up with [place] [facility] as instructed Up with [facility] Do not drive or operate heavy machinery while taking in [place] or phenergan as these medication causes drowsiness Prescriptions: HYDROcodone/APAP 5-325 [[place] 5-325 mg TAB] 1 each PO Q6HR PRN #12 tablet PRN Reason: Pain Ibuprofen [Motrin 600 MG tab] 600 mg PO Q8H PRN #15 tablet PRN Reason: Pain Promethazine [Phenergan TAB] 25 mg PO Q8HR PRN #15 tab PRN Reason: Nausea Tamsulosin [Flomax] 0.4 mg PO QDAY 4 Days #4 cap Referrals: [facility] [Outside] - 09/24/17 [facility] [Provider Group] - 3-5 Days Forms: Work/School Release Form(ED)
--- NOTE | 2017-09-22 20:23 | Cat Scan Report ---
FINAL REPORT PROCEDURE: CT ABDOMEN PELVIS WO CON TECHNIQUE: Computerized axial tomography of the abdomen and pelvis was performed without intravenous contrast. This study is performed without intravascular contrast material and its sensitivity for abdominal and pelvic pathology, including neoplasms, inflammation, abscess, free fluid, thrombosis, arterial dissection and infarction, is reduced compared with a contrast enhanced study. HISTORY: flank pain hematuria COMPARISON: 12/17/2016 FINDINGS: Visualized lower thorax: No significant abnormality. Liver: Normal size and attenuation. Spleen: Normal size and attenuation. Gallbladder and biliary system: Normal. Pancreas: Normal. Adrenals: Normal. Kidneys: There is a 5 millimeter calculus in the mid right ureter, with mild right hydroureteronephrosis. There is a punctate nonobstructive 1 millimeter calculus in the right kidney midpole. Nonobstructive left renal calculi are seen, measuring up to 6 millimeters. GI tract: The appendix is visualized and does not appear inflamed. No bowel obstruction or acute inflammation is seen. Lymph nodes and mesentery: Normal. Vasculature: Normal. Bladder: Normal. Reproductive organs: Prostate calcifications are present. Peritoneum: No free fluid. Musculoskeletal structures: No significant abnormality. Other: None. IMPRESSION: 5 millimeter right ureteral calculus with mild right hydroureteronephrosis. Bilateral renal calculi.
== END 2017-09-22 22:49 | disposition home or self-care (01) ==
LOC: ED 15:51
DX: N13.2 Hydronephrosis with renal and ureteral calculous obstruction (principal); F17.200 Nicotine dependence, unspecified, uncomplicated; F12.10 Cannabis abuse, uncomplicated; F14.10 Cocaine abuse, uncomplicated
CPT/HCPCS: 36415; 74176; 80053; 81001; 85025; 87086; 99284; Q0162

== ENCOUNTER 2017-10-24 07:14 | Emergency (ER) | payer SELFPAY ==
[2017-10-24 08:05] LABS: Bilirubin,Urine NEG (Negative); Blood,Urine SM (Negative); Color,Urine Yellow (Yellow); Mucus,Urine FEW /HPF; Protein,Urine <15 mg/dL mg/dL (Negative); Urobilinogen,Urine < 2.0 mg/dL (<2.0)
[2017-10-24] MEDS ORDERED: TORADOL IV ONE (08:55)
[2017-10-24] MEDS ORDERED: ZOFRAN IV ONE (08:55)
[2017-10-24] MEDS ORDERED: MORPHINE IV ONE (08:55)
[2017-10-24] MEDS ORDERED: NACL 0.9% 1000 ML 1,000 ML IV ONE (08:55)
[2017-10-24 09:43] LABS: Basophils % (Auto) 0.4 % (0.0-1.8); Eosinophils % (Auto) 0.1 % (0.0-4.3); Hematocrit 45.5 % (35.5-45.6); Hemoglobin 15.1 gm/dl (11.8-15.2); Lymphocytes # (Auto) 1.7 K/mm3 (1.2-5.4); Lymphocytes % (Auto) 18.1 % (13.4-35.0); Mean Corpuscular HGB Conc 33 % (32-34); Mean Corpuscular Hemoglobin 29 pg (28-32); Mean Corpuscular Volume 88 fl (84-94); Monocytes # (Auto) 0.7 K/mm3 (0.0-0.8); Monocytes % (Auto) 7.9 % (0.0-7.3); Platelet Count 268 K/mm3 (140-440); Red Blood Count 5.17 M/mm3 (3.65-5.03); Red Cell Distribution Width 13.8 % (13.2-15.2)
[2017-10-24 10:10] LABS: Alanine Aminotransferase 14 units/L (7-56); Albumin 4.4 g/dL (3.9-5); BUN/Creatinine Ratio 10; Blood Urea Nitrogen 14 mg/dL (9-20); Calcium 9.5 mg/dL (8.4-10.2); Hemolysis Index 8
--- NOTE | 2017-10-24 10:21 | Cat Scan Report ---
CT scan of abdomen and pelvis without IV contrast: History: Right flank pain, history of kidney stones. Findings: Normal lung bases. No pleural pericardial effusion. Normal liver spleen pancreas and gallbladder. Normal adrenals. There is some 7 mm radiopaque calculus identified at the junction of middle and distal third of right ureter causing obstruction and proximal hydronephrosis. There is a 5 mm calculus ,2 mm calculus, 3 mm calculus and 1 mm calculus at left kidney. No hydronephrosis. Bladder appears normal. No free intraperitoneal fluid or air. No evidence of adenopathy. Normal aorta. Prostate measures 4.3 x 3 cm. Central calcification is noted. Gaseous colon with stool in colon. Distention of colon noted predominantly present. No evidence of appendicitis or diverticulitis. Impression: 7 millimeter calculus right ureter with proximal hydronephrosis. Multiple nonobstructing calculi left kidney.
[2017-10-24 10:50] VITALS: BP 148/78
--- NOTE | 2017-10-24 11:19 | Emergency Department Report ---
ED Abdominal Pain HPI - General Chief Complaint: Abdominal Pain Stated Complaint: BACK/STOMACH PAIN Time Seen by Provider: 10/24/17 08:17 Source: patient, old records reviewed Mode of arrival: Ambulatory Limitations: No Limitations - History of Present Illness Initial Comments: 42-year-old male with a past medical history of kidney stones presents to the hospital with sudden onset of left-sided flank pain for the past 4-5 hours. Pain is intermittent, sharp and aching, with nonspecific density. Positive associated nausea and vomiting. No BM in one week. Patient denies hematuria, dysuria, or urinary retention. Last lithotripsy was over 10 years ago. He was medical record reviewed and patient was here 09/22/2017 for left flank pain. There is a 5 mm calculus in the mid right ureter with mild right hydroureteronephrosis. Had multiple nonobstructing stone in both kidneys. Since ER visit patient has not followed up with a urologist Severity scale (0 -10): 3 - Related Data Previous Rx's Medication Instructions Recorded Last Taken Type Sulfamethoxazole/Trimethoprim 1 each PO BID #14 tablet 08/09/15 Unknown Rx [Bactrim DS TAB] Brompheniramine/Pseudoephed/Dm 10 ml PO Q4H PRN #120 syrup 10/12/15 Unknown Rx [Bromfed Dm Cough Syrup] Ondansetron [Zofran Odt] 4 mg PO Q8H PRN #10 tab.rapdis 10/12/15 Unknown Rx Amoxicillin [Trimox CAP] 500 mg PO Q8H #21 capsule 11/03/16 Unknown Rx Carbamide Peroxide 6.5% [Ear Wax 300 drops OT QDAY #1 bottle 11/03/16 Unknown Rx Drops] Neomy/Polymyx B/Hc (Otic) Soln 4 drops OTIC TID #1 bottle 11/03/16 Unknown Rx [Cortisporin (Otic) Soln] Ketorolac [Toradol] 10 mg PO Q6H PRN #20 tablet 12/19/16 Unknown Rx Ondansetron [Zofran Odt] 4 mg PO QID PRN #20 tab.rapdis 12/19/16 Unknown Rx Tamsulosin [Flomax] 0.4 mg PO QDAY #30 cap 12/19/16 Unknown Rx oxyCODONE [Roxicodone] 5 mg PO Q6HR PRN #15 tablet 04/28/17 Unknown Rx HYDROcodone/APAP 5-325 [[place] 1 each PO Q6HR PRN #12 tablet 09/22/17 Unknown Rx 5-325 mg TAB] Ibuprofen [Motrin 600 MG tab] 600 mg PO Q8H PRN #15 tablet 09/22/17 Unknown Rx Promethazine [Phenergan TAB] 25 mg PO Q8HR PRN #15 tab 09/22/17 Unknown Rx Tamsulosin [Flomax] 0.4 mg PO QDAY 4 Days #4 cap 09/22/17 Unknown Rx HYDROcodone/APAP 5-325 [[place] 1 each PO Q6HR PRN #20 tablet 10/24/17 Unknown Rx 5-325 mg TAB] Ibuprofen [Motrin] 600 mg PO Q8H PRN #30 tablet 10/24/17 Unknown Rx Ondansetron [Zofran Odt] 4 mg PO Q8HR PRN #20 tab.rapdis 10/24/17 Unknown Rx Tamsulosin [Flomax] 0.4 mg PO QDAY #10 cap 10/24/17 Unknown Rx Allergies Allergy/AdvReac Type Severity Reaction Status Date / Time No Known Allergies Allergy Verified 10/24/17 07:18 ED Review of Systems ROS: Stated complaint: BACK/STOMACH PAIN Other details as noted in HPI Comment: All other systems reviewed and negative Other: Constitutional: No fevers chills Eyes: No eye pain visual changes ENT: No ear pain or throat pain Neck: Denies pain Respiratory: Denies cough wheezing shortness of breath Cardiovascular: Denies chest pain, palpitations, syncope GI: As per HPI : Denies dysuria Musculoskeletal: Denies back pain, joint swelling Skin: Denies rash, lesions, erythema Neurologic: Denies headache, numbness, weakness Psychiatric: Denies suicidal ideation, hallucinations ED Past Medical Hx - Past Medical History Hx Kidney Stones: Yes Additional medical history: Kidney Stone - Surgical History Additional Surgical History: Kidney Stone, Laser surgery for kidney stones - Social History Smoking Status: Current Every Day Smoker Substance Use Type: Alcohol, Marijuana - Medications Home Medications: Home Medications Medication Instructions Recorded Confirmed Last Taken Type Sulfamethoxazole/Trimethoprim 1 each PO BID #14 tablet 08/09/15 Unknown Rx [Bactrim DS TAB] Brompheniramine/Pseudoephed/Dm 10 ml PO Q4H PRN #120 syrup 10/12/15 Unknown Rx [Bromfed Dm Cough Syrup] Ondansetron [Zofran Odt] 4 mg PO Q8H PRN #10 tab.rapdis 10/12/15 Unknown Rx Amoxicillin [Trimox CAP] 500 mg PO Q8H #21 capsule 11/03/16 Unknown Rx Carbamide Peroxide 6.5% [Ear Wax 300 drops OT QDAY #1 bottle 11/03/16 Unknown Rx Drops] Neomy/Polymyx B/Hc (Otic) Soln 4 drops OTIC TID #1 bottle 11/03/16 Unknown Rx [Cortisporin (Otic) Soln] Ketorolac [Toradol] 10 mg PO Q6H PRN #20 tablet 12/19/16 Unknown Rx Ondansetron [Zofran Odt] 4 mg PO QID PRN #20 tab.rapdis 12/19/16 Unknown Rx Tamsulosin [Flomax] 0.4 mg PO QDAY #30 cap 12/19/16 Unknown Rx oxyCODONE [Roxicodone] 5 mg PO Q6HR PRN #15 tablet 12/19/16 Unknown Rx HYDROcodone/APAP 5-325 [[place] 1 each PO Q6HR PRN #12 tablet 09/22/17 Unknown Rx 5-325 mg TAB] Ibuprofen [Motrin 600 MG tab] 600 mg PO Q8H PRN #15 tablet 09/22/17 Unknown Rx Promethazine [Phenergan TAB] 25 mg PO Q8HR PRN #15 tab 09/22/17 Unknown Rx Tamsulosin [Flomax] 0.4 mg PO QDAY 4 Days #4 cap 09/22/17 Unknown Rx HYDROcodone/APAP 5-325 [[place] 1 each PO Q6HR PRN #20 tablet 10/24/17 Unknown Rx 5-325 mg TAB] Ibuprofen [Motrin] 600 mg PO Q8H PRN #30 tablet 10/24/17 Unknown Rx Ondansetron [Zofran Odt] 4 mg PO Q8HR PRN #20 tab.rapdis 10/24/17 Unknown Rx Tamsulosin [Flomax] 0.4 mg PO QDAY #10 cap 10/24/17 Unknown Rx ED Physical Exam - General Limitations: No Limitations - Other Other exam information: General: No limitations, patient is alert in no acute distress Head exam: Atraumatic, normocephalic Eyes exam: Normal appearance ENT: Moist mucous membrane, normal oropharynx Neck exam: Normal inspection, full range of motion, no meningismus nontender Respiratory exam: Clear to auscultation bilateral, no wheezes, rales, crackles Cardiovascular: Normal rate and rhythm, normal heart sounds Abdomen: Soft, nondistended, right abdominal tenderness, with normal bowel sounds, no rebound, or guarding Extremity: Full range of motion normal inspection no deformity Back: Normal Inspection, full range of motion, right CVA tenderness Neurologic: Alert, oriented x3, cranial nerves intact, no motor or sensory deficit Psychiatric: normal affect, normal mood Skin: Warm, dry, intact ED Course Vital Signs 10/24/17 10/24/17 10/24/17 07:18 09:15 09:32 Temperature 97.6 F Pulse Rate 82 Respiratory 20 20 20 Rate Blood Pressure 151/107 Blood Pressure [Left] O2 Sat by Pulse 99 99 Oximetry 10/24/17 10/24/17 10/24/17 09:34 10:02 10:04 Temperature Pulse Rate Respiratory 20 20 20 Rate Blood Pressure Blood Pressure [Left] O2 Sat by Pulse Oximetry 10/24/17 10:50 Temperature Pulse Rate 84 Respiratory Rate Blood Pressure Blood Pressure 148/78 [Left] O2 Sat by Pulse Oximetry ED Medical Decision Making - Lab Data Result diagrams: 10/24/17 09:38 10/24/17 09:38 Lab Results 10/24/17 10/24/17 10/24/17 Range/Units 07:28 09:38 09:38 WBC 9.5 (4.5-11.0) K/mm3 RBC 5.17 H (3.65-5.03) M/mm3 Hgb 15.1 (11.8-15.2) gm/dl Hct 45.5 (35.5-45.6) % MCV 88 (84-94) fl MCH 29 (28-32) pg MCHC 33 (32-34) % RDW 13.8 (13.2-15.2) % Plt Count 268 (140-440) K/mm3 Lymph % (Auto) 18.1 (13.4-35.0) % [place] % (Auto) 7.9 H (0.0-7.3) % Eos % (Auto) 0.1 (0.0-4.3) % Baso % (Auto) 0.4 (0.0-1.8) % Lymph # 1.7 (1.2-5.4) K/mm3 [place] # 0.7 (0.0-0.8) K/mm3 Eos # 0.0 (0.0-0.4) K/mm3 Baso # 0.0 (0.0-0.1) K/mm3 Seg Neutrophils % 73.5 H (40.0-70.0) % Seg Neutrophils # 7.0 (1.8-7.7) K/mm3 Sodium 136 L (137-145) mmol/L Potassium 4.5 (3.6-5.0) mmol/L Chloride 96.1 L (98-107) mmol/L Carbon Dioxide 29 (22-30) mmol/L Anion Gap 15 mmol/L BUN 14 (9-20) mg/dL Creatinine 1.4 (0.8-1.5) mg/dL Estimated GFR > 60 ml/min BUN/Creatinine Ratio 10 % Glucose 104 H (75-100) mg/dL Calcium 9.5 (8.4-10.2) mg/dL Total Bilirubin 0.30 (0.1-1.2) mg/dL AST 15 (5-40) units/L ALT 14 (7-56) units/L Alkaline Phosphatase 93 (35-129) units/L Total Protein 7.7 (6.3-8.2) g/dL Albumin 4.4 (3.9-5) g/dL Albumin/Globulin Ratio 1.3 % Urine Color Yellow (Yellow) Urine Turbidity Clear (Clear) Urine pH 5.0 (5.0-7.0) Ur Specific [place] 1.020 (1.003-1.030) Urine Protein <15 mg/dl (Negative) mg/dL Urine Glucose (UA) Neg (Negative) mg/dL Urine Ketones Tr (Negative) mg/dL Urine Blood Sm (Negative) Urine Nitrite Neg (Negative) Urine Bilirubin Neg (Negative) Urine Urobilinogen < 2.0 (<2.0) mg/dL Ur Leukocyte Esterase Neg (Negative) Urine WBC (Auto) 6.0 (0.0-6.0) /HPF Urine RBC (Auto) 8.0 (0.0-6.0) /HPF Urine Mucus Few /HPF - Radiology Data Radiology results: report reviewed CT abdomen and pelvis noncontrast: 7 mm calculus in the right ureter with proximal hydronephrosis. Multiple nonobstructing calculi in the left kidney - Medical Decision Making Patient having right flank pain secondary to renal colic and has not followed up with urologist despite recommendation. CT reveals a similar appearing stone compared to August scan. No signs of infection, sepsis, intractable vomiting, intractable pain, or renal failure at this time. Patient is therefore a candidate for outpatient treatment. Pt will be treated symptomatically with pain medication, nausea medication, and Flomax and encouraged to follow up with a urologist for definitive treatment. - Differential Diagnosis renal colic, UTI, biliary colic, appendicitis Critical Care Time: No Critical care attestation.: If time is entered above; I have spent that time in minutes in the direct care of this critically ill patient, excluding procedure time. ED Disposition Clinical Impression: Renal colic on right side, Hydroureteronephrosis, Kidney stones Disposition: TO HOME OR SELFCARE Is pt being admited?: No Does the pt Need Aspirin: No Condition: Stable Instructions: Renal Colic (ED), Hydronephrosis (ED) Additional Instructions: Take the medication as prescribed. It is very important that you follow up with the kidney specialist for further management of your kidney stone since it is still present since August. Return if symptoms worsen as indicated by her discharge instructions Prescriptions: HYDROcodone/APAP 5-325 [[place] 5-325 mg TAB] 1 each PO Q6HR PRN #20 tablet PRN Reason: Pain Ibuprofen [Motrin] 600 mg PO Q8H PRN #30 tablet PRN Reason: Pain Ondansetron [Zofran Odt] 4 mg PO Q8HR PRN #20 tab.rapdis PRN Reason: Nausea And Vomiting Tamsulosin [Flomax] 0.4 mg PO QDAY #10 cap Referrals: [facility] [Provider Group] - 3-5 Days MAXIME GOLDSMITH MD [Staff Physician] - 3-5 Days Time of Disposition: 11:23
== END 2017-10-24 11:33 | disposition home or self-care (01) ==
LOC: ED 07:14
DX: N13.2 Hydronephrosis with renal and ureteral calculous obstruction (principal); F17.200 Nicotine dependence, unspecified, uncomplicated; F12.10 Cannabis abuse, uncomplicated
CPT/HCPCS: 36415; 74176; 80053; 81001; 85025; 96361; 96374; 96375; 99284; J1885; J2270; J2405; J7030

== ENCOUNTER 2017-11-05 15:11 | Emergency (ER) | payer SELFPAY ==
[2017-11-05] MEDS ORDERED: TORADOL ONE (17:06)
[2017-11-05] MEDS ORDERED: NORCO 5/325 PO ONE (17:26)
[2017-11-05] MEDS ORDERED: CATAPRES PO ONE (17:30)
--- NOTE | 2017-11-05 17:32 | Emergency Department Report ---
HPI - General Chief Complaint: Abdominal Pain Time Seen by Provider: 11/05/17 17:19 - HPI HPI: The patient is a 42-year-old male who presents for evaluation of back pain. The patient reports right lower back and side pain for the past week. He states that his pain has been constant since reoccurring, aching in quality, 10/ 10 in severity, exacerbated with movement or bending over. He states that the pain is not radiating into the abdomen or the groin. The patient denies blunt trauma to the back, fall, fever, chills, night sweats, saddle anesthesia, paresthesias, numbness or tingling in the legs, leg weakness, urine or bowel incontinence or retention, difficulty ambulating, or other focal neurological deficits, dysuria, hematuria, decreased urine output, abdominal pain, vomiting, chills, night sweats, fever. ED Past Medical Hx - Past Medical History Previous Medical History?: Yes Hx Kidney Stones: Yes Additional medical history: Kidney Stone - Surgical History Past Surgical History?: Yes Additional Surgical History: Kidney Stone, Laser surgery for kidney stones - Social History Smoking Status: Never Smoker Substance Use Type: None - Medications Home Medications: Home Medications Medication Instructions Recorded Confirmed Last Taken Type Sulfamethoxazole/Trimethoprim 1 each PO BID #14 tablet 08/09/15 Unknown Rx [Bactrim DS TAB] Ondansetron [Zofran Odt] 4 mg PO Q8H PRN #10 tab.rapdis 10/12/15 Unknown Rx Amoxicillin [Trimox CAP] 500 mg PO Q8H #21 capsule 11/03/16 Unknown Rx Carbamide Peroxide 6.5% [Ear Wax 300 drops OT QDAY #1 bottle 11/03/16 Unknown Rx Drops] Neomy/Polymyx B/Hc (Otic) Soln 4 drops OTIC TID #1 bottle 11/03/16 Unknown Rx [Cortisporin (Otic) Soln] Ketorolac [Toradol] 10 mg PO Q6H PRN #20 tablet 12/19/16 Unknown Rx Ondansetron [Zofran Odt] 4 mg PO QID PRN #20 tab.rapdis 12/19/16 Unknown Rx Tamsulosin [Flomax] 0.4 mg PO QDAY #30 cap 12/19/16 Unknown Rx Ibuprofen [Motrin 600 MG tab] 600 mg PO Q8H PRN #15 tablet 09/22/17 Unknown Rx Tamsulosin [Flomax] 0.4 mg PO QDAY 4 Days #4 cap 09/22/17 Unknown Rx Ibuprofen [Motrin] 600 mg PO Q8H PRN #30 tablet 10/24/17 Unknown Rx Ondansetron [Zofran Odt] 4 mg PO Q8HR PRN #20 tab.rapdis 10/24/17 Unknown Rx Tamsulosin [Flomax] 0.4 mg PO QDAY #10 cap 10/24/17 Unknown Rx oxyCODONE /ACETAMINOPHEN [Percocet 1 tab PO Q6HR PRN #7 tablet 11/05/17 Unknown Rx 5/325] ED Review of Systems ROS: Stated complaint: KIDNEY STONE PAIN Other details as noted in HPI Constitutional: denies: fever ENT: denies: throat or neck pain Respiratory: denies: cough, shortness of breath Cardiovascular: denies: chest pain Endocrine: denies unexplained weight loss or gain Gastrointestinal: denies: abdominal pain, nausea Genitourinary: denies: dysuria Musculoskeletal: Reports back pain denies: leg swelling Skin: denies: rash Neurological: denies: headache Hematological/Lymphatic: denies: easy bleeding or easy bruising Psych: denies sadness or hopelessness Physical Exam - Physical Exam Vital Signs: Vital Signs 11/05/17 15:45 Temperature 98.7 F Pulse Rate 97 H Respiratory 18 Rate Blood Pressure 159/100 O2 Sat by Pulse 100 Oximetry Physical Exam: General: well-nourished, well-developed, no acute distress Head: Normocephalic, atraumatic Eyes: normal sclera ENT: Mucous membranes are pink and moist Neck: trachea midline, neck supple, No neck stiffness, no cervical adenopathy Respiratory: Breath sounds equal bilaterally, no wheezing, rales, or rhonchi Cardio: S1 and S2 present, no murmurs, rubs, gallops, capillary refill is brisk Abdomen: Normoactive bowel sounds, soft abdomen, no tenderness Chest WALL/Flank: No tenderness to palpation of the chest wall, no CVA tenderness with percussion Musc: Tenderness to palpation present to right lower thoracic paraspinal musculature, pain is elicited with rotation at the hip to the right, normal active range of motion at the hip intact, no spinous step-off or obvious deformity, ipsi-lateral and contralateral straight leg raise tests are negative. On extremity testing, compartments are soft and pliable, no obvious gross motor strength deficit, 5+ motor strength, including extension of the great toe bilaterally, no muscular atrophy, spasticity, fasciculations, or clonus, no obvious gross sensation deficit including web space between 1st and 2nd toes, reflexes 2+ & symmetric on DTR testing at the knee and ankle joints, distal pulses intact. Skin: No rash Neuro: no facial drooping, normal speech Psych: Normal affect ED Course Vital Signs 11/05/17 15:45 Temperature 98.7 F Pulse Rate 97 H Respiratory 18 Rate Blood Pressure 159/100 O2 Sat by Pulse 100 Oximetry ED Medical Decision Making - Medical Decision Making The patient was seen and examined by myself. The patient is placed on a pvc monitor and continuous pulse ox. On initial evaluation, the patient was found to be in no distress. No findings on exam concerning for cauda equina syndrome, spinal stenosis, or epidural abscess. As the patient has no midline tenderness on exam, no neuro deficits, and no findings concerning for emergent etiology of their back pain, imaging will not be obtained at this time. The patient is given PO pain medicine. The patient was reevaluated and reported that their pain significantly improved. The patient is stable for discharge with outpatient follow-up. The patient is given follow-up and return instructions. The patient expressed understanding and agreed with the plan. The patient is discharged in stable condition. Critical care attestation.: If time is entered above; I have spent that time in minutes in the direct care of this critically ill patient, excluding procedure time. ED Disposition Clinical Impression: Acute right-sided low back pain without sciatica Disposition: TO HOME OR SELFCARE Is pt being admited?: No Does the pt Need Aspirin: No Condition: Stable Instructions: Back Pain (ED) Prescriptions: oxyCODONE /ACETAMINOPHEN [Percocet 5/325] 1 tab PO Q6HR PRN #7 tablet PRN Reason: Pain Referrals: [facility] [Outside] - 3-5 Days Time of Disposition: 17:28
[2017-11-05 18:10] VITALS: BP 120/66
== END 2017-11-05 20:33 | disposition home or self-care (01) ==
LOC: ED 15:11
DX: M54.5 Low back pain (principal)
CPT/HCPCS: 99283; J1885